=== PATIENT | female | born 1990 | race Hispanic/Latino ===

== ENCOUNTER 2016-09-11 21:00 | Emergency (ER) | payer OTHER ==
[2016-09-11] MEDS ORDERED: Albuterol-Ipratrop 3 mg / 0.5 (3 ml) UD ONE (21:39)
[2016-09-11] MEDS ORDERED: Albuterol-Ipratrop 3 mg / 0.5 (3 ml) UD INH STA ×2 (21:40→21:41)
--- NOTE | 2016-09-11 21:58 | ED PDOC ---
HPI: SOB/CHF/COPD Time Seen by Provider: 09/11/16 21:19 Chief Complaint (Nursing): Respiratory Distress Chief Complaint (Provider): Dyspnea/Wheezing History Per: Patient History/Exam Limitations: no limitations Onset/Duration Of Symptoms: Days (2 days) Current Symptoms Are (Timing): Still Present Initiating Event: Upper Respiratory Illness (asthma) Context: asthma exacerbation Quality: Tightness Current Respiratory Medications: Albuterol, Other (Symbicort and Spiriva) Severity: Moderate Associated Symptoms: Other (dry cough). denies: Fever, Chest Pain, Bloody Cough , Productive Cough, Ankle/Leg Swelling Recently: Seen In ED, Treated By A Physician, Hospitalized (seen once in the ICU and was not intubated) Additional Complaint(s): Karla Barba is a 26 year old female, with a past medical history of asthma, who presents to the emergency department for the evaluation of dyspnea and wheezing, inclusive of chest tightness, that the patient has been experiencing for the past 2 days. Patient reports taking Albuterol every 2 hours without relief. Patient takes her medications daily without complaints. Associated dry cough is currently present. Denies a fever, chest pain, or leg swelling. Of note , patient was hospitalized in the ICU one time in the past and was not intubated. PMD: [facility] Past Medical History Reviewed: Historical Data, Nursing Documentation, Vital Signs Vital Signs: Last Vital Signs Temp 97.8 F 09/11/16 21:11 Pulse 78 09/11/16 21:11 Resp 18 09/11/16 21:11 BP 106/65 09/11/16 21:11 Pulse Ox 99 09/11/16 22:43 - Medical History PMH: Asthma - Surgical History Surgical History: No Surg Hx - Family History Family History: States: No Known Family Hx - Social History Current smoker - smoking cessation education provided: No Ex-Smoker (has not smoked in the last 12 months): No Alcohol: Occasional Drugs: Denies - Home Medications Home Medications: Ambulatory Orders Medication Instructions Recorded Prednisone 50 mg PO DAILY #4 tab 09/11/16 - Allergies Allergies/Adverse Reactions: Allergies Allergy/AdvReac Type Severity Reaction Status Date / Time amoxicillin Allergy RASH Verified 09/11/16 21:13 Review of Systems ROS Statement: Except As Marked, All Systems Reviewed And Found Negative Constitutional: Negative for: Fever Cardiovascular: Negative for: Chest Pain (chest tightness w/o pain), Edema (leg swelling) Respiratory: Positive for: Cough, Shortness of Breath, Wheezing. Negative for: Hemoptysis, Sputum Physical Exam - Reviewed Nursing Documentation Reviewed: Yes Vital Signs Reviewed: Yes - Physical Exam Appears: Positive for: Non-toxic, No Acute Distress. Negative for: Uncomfortable Head Exam: Positive for: ATRAUMATIC, NORMOCEPHALIC Skin: Positive for: Normal Color, Warm, Dry Eye Exam: Positive for: Normal appearance, EOMI, PERRL Cardiovascular/Chest: Positive for: Regular Rate, Rhythm. Negative for: Murmur Respiratory: Positive for: Normal Breath Sounds, Wheezing (occasional b/l wheeze ). Negative for: Rales Gastrointestinal/Abdominal: Positive for: Normal Exam, Soft. Negative for: Tenderness Back: Positive for: Normal Inspection. Negative for: L CVA Tenderness, R CVA Tenderness Extremity: Positive for: Normal ROM. Negative for: Tenderness, Swelling Neurologic/Psych: Positive for: Alert, Oriented - ECG ECG: Positive for: Interpreted By Me, Viewed By Me ECG Rhythm: Positive for: Normal QRS, Normal ST Segment, Sinus Rhythm. Negative for: ST/T Changes Rate: 78 O2 Sat by Pulse Oximetry: 97 (RA) Pulse Ox Interpretation: Normal - Progress Re-evaluation Time: 23:07 Condition: Re-examined, Improved Nebulizer Treatments/Peak Flow - Duonebs Number of Bronchodilator Doses given?: 2 - Pre/Post Peak Flow Pre Treatment Peak Flow: 310 Post treatment Peak Flow: 340 - Steroid Treatment Steroid: IV - Clinical Response Clinical Response: Improved Medical Decision Making Medical Decision Makin:19 Initial Impression: Asthma exacerbation Differential Diagnoses were considered, but are not listed. Initial Plan: * EKG * Albuterol/Ipratropium 3 ml INH (x2) * methylPREDNISolone 125 mg IVP * Peak Flow Pre/Post Treatment (x2) * Reevaluation Scribe Attestation: Documented by Jeremy Raphael, acting as a scribe for Sheila Larsen MD. Provider Scribe Attestation: All medical record entries made by the Scribe were at my direction and personally dictated by me. I have reviewed the chart and agree that the record accurately reflects my personal performance of the history, physical exam, medical decision making, and the department course for this patient. I have also personally directed, reviewed, and agree with the discharge instructions and disposition. Disposition - Clinical Impression Clinical Impression: Asthma attack - Patient ED Disposition Is Patient to be Admitted: No Doctor Will See Patient In The: Office Counseled Patient/Family Regarding: Studies Performed, Diagnosis, Need For Followup - Disposition Referrals: [facility] [Outside] Disposition: Routine/Home Disposition Time: 23:05 Condition: GOOD Additional Instructions: Follow up with your PCP in 2-3 days. Prescriptions: Prednisone 50 mg PO DAILY #4 tab Instructions: Asthma (ED)
[2016-09-11 23:23] VITALS: BP 112/62; PULSE 68; RESP 16; TEMP 98; O2SAT 98
--- NOTE | 2016-09-13 08:53 | CARD ---
APPROVED REPORT EKG Measurement Heart [id number] <Conclusion> Normal sinus rhythm with sinus arrhythmia Normal ECG
== END 2016-09-11 23:23 | disposition home or self-care (01) ==
LOC: H.ER 21:00
DX: J45.901 Unspecified asthma with (acute) exacerbation (principal); Z87.891 Personal history of nicotine dependence